=== PATIENT | female | born 1965 | race Caucasian/White ===

== ENCOUNTER 2017-01-06 18:20 | Inpatient (IN) | payer SELFPAY ==
[~2017-01-06] VITALS: Ht 167.6 cm; Wt 99.8 kg
[~2017-01-06 18:20] MED LIST: CALCIUM CARBON600 M4 PO; FERROUS SULFAT325 MG PO
[2017-01-06 18:45] VITALS: BP 129/88
--- NOTE | 2017-01-06 20:20 | NUR ---
51F BIB FAMILY C/O SEIZURE THIS MORNING & 30 MINUTES AGO TODAY. PT HAD A SEIZURE ACTIVITY IN LOBBY, RIGHT NOW ALOC, AMBULATED TO BED, ON LEARNING AND DEVELOPMENT ADMINISTRATOR. SEIZURES PRECAUTIONS INITIATED, ER MD EVALUATING PT AT BEDSIDE. PT IN O2 6 LT NONREBREATHER MASK. O2 98% RA, LORAZEPAM ADMINISTERED VIA IV.
--- NOTE | 2017-01-06 20:20 | NUR ---
Patient being evaluated by physician at bedside.
--- NOTE | 2017-01-06 20:20 | NUR ---
BIB WHEELCHAIR TO ER BED 5
[2017-01-06] MEDS ORDERED: NACL 0.9% 1,000 ML IV ONE (20:26)
[2017-01-06] MEDS ORDERED: LORazepam 2 MG/ML VIAL ONE (20:29)
[2017-01-06] MEDS ORDERED: LORazepam 2 MG/ML VIAL IVP ONE ×2 (20:30→20:35)
--- NOTE | 2017-01-06 21:44 | NUR ---
PT AWAKE, ALERT AND ORIENTED X 4, DENIES ANY PAIN AT THE MOMENT. NO S/S OF DISTRESS NOTED OR ANY MORE SEIZURE ACTIVITY UP TO THIS POINT. PT CONTINUES IN O2, VSS. ER MD NOTIFIED.
--- NOTE | 2017-01-06 22:26 | NUR ---
Patient will be admitted to care of . Admited to TELEMETRY. Will go to [id number]. Belongings list completed. Report to EZRA ARTEAGA.
[2017-01-06] MEDS ORDERED: HYDROcodone/APAP 5/325 MG 1 TAB TAB PO PRN (23:05)
[2017-01-06] MEDS ORDERED: LORazepam 2 MG/ML VIAL IVP PRN (23:05)
[2017-01-06] MEDS ORDERED: ONDANSETRON 4 MG/2 ML VIAL IVP PRN (23:05)
[2017-01-06 23:35] VITALS: BP 101/65
--- NOTE | 2017-01-06 23:35 | NUR ---
ADMITTED A PT FROM ER, TRANSPORTED VIA GURNEY ACCOMPANIED BY ER NURSE. PT IS AAOX4 HAS NO COMPLAIN OF PAIN. ON FASK MASK AT 6LPM, NO S/S OF RESPIRATORY DISTRESS/DISCOMFORT NOTED. V/S CHECKED AND STABLE. SKIN CHECKED DONE BY CHARGE NURSE. IV SITE IS PATENT AND INTACT. ID BAND UPDATED. MRSA SWABBING DONE. ROOM ORIENTATION DONE. PLAN OF CARE DISCUSSED, VERBALIZED UNDERSTANDING. SAFETY MEASURES INITIATED, CALL LIGHT WITHIN REACH. WILL CONTINUE TO MONITOR.
[2017-01-06] MEDS: NACL 0.9% 1,000 ML IV SCH (23:46)
[2017-01-07] VITALS: BP 112/66
[2017-01-07] MEDS: ACETAMINOPHEN 325 MG TAB PO PRN ×2 (00:23→10:53)
--- NOTE | 2017-01-07 02:37 | NUR ---
PT IS SLEEPING. NO S/S OR RESPIRATORY DISTRESS/DISCOMFORT NOTED.
--- NOTE | 2017-01-07 03:08 | NUR ---
SPOKE TO NORY, DAUGHTER VIA PHONE. SHE ASKED ABOUT THE CONDITION OF HER MOM, PT WAS AWAKE. I LET HER TALKED TO HER MOM. PT NOT IN DISTRESS.
[2017-01-07 04:00] VITALS: BP 106/62
--- NOTE | 2017-01-07 04:00 | NUR ---
PT SLEEPING EASILY AWAKE BY HER NAME. V/S CHECKED ANS STABLE. NO COMPLAIN OF PAIN. NO S/S IF RESPIRATORY DISTRESS/DISCOMFORT NOTED.
--- NOTE | 2017-01-07 06:00 | NUR ---
PT IS AWAKE. NOT IN DISTRESS. NO S/S OF RESPIRATORY DISTRESS/DISCOMFORT NOTED. CALL LIGHT WITHIN REACH.
--- NOTE | 2017-01-07 07:11 | NUR ---
ENDORSED REPORT TO DAY SHIFT NURSE FOR CONTINUITY OF CARE. PT IS IN STABLE CONDITION.
--- NOTE | 2017-01-07 07:35 | NUR ---
RECEIVED PT SLEEPING COMFORTABLY IN BED AND WAS IN NO DISTRESS. NO SEIZURE ACTIVITIES NOTED AND NOTED PADDING APPLIED ON SIDERAILS. PT EASILY AWAKENED AND VOICED NO C/O PAIN OR ANY OTHER DISCOMFORT. SHIFT ASSESSMENT DONE AND CHARTED. PLAN OF CARE, MEDS, TREATMENTS AND SAFETY DISCUSSED WITH PT AND PT VERBALIZED UNDERSTANDING. WILL CONTINUE TO MONITOR PT.
[2017-01-07 08:00] VITALS: BP 112/64
--- NOTE | 2017-01-07 08:00 | NUR ---
DR. MCCOY AND DR. UGALDE SAW PT AND MDS LEFT NEW ORDERS.
--- NOTE | 2017-01-07 08:04 | NUR ---
PATIENT HAS BEEN SCREENED AND CATEGORIZED MODERATE NUTRITION RISK. PATIENT WILL BE SEEN WITHIN 3-5 DAYS OF ADMISSION. 01/09/17-01/11/[address]
[2017-01-07] MEDS: CALCIUM CARB 600 MG TAB PO SCH ×2 (09:16→20:48)
[2017-01-07] MEDS: FERROUS SULFATE 325 MG TABEC PO SCH ×3 (09:16→17:49)
[2017-01-07] MEDS: NACL 0.9% 1,000 ML IV SCH ×2 (09:19→18:38)
--- NOTE | 2017-01-07 10:00 | NUR ---
PT'S DAUGHTER AND SISTER WERE IN TO VISIT PT. PT AAOX4 AND AMBULATING IN THE ROOM WITH STEADY GAIT. NO SEIZURES NOTED.
--- NOTE | 2017-01-07 10:53 | NUR ---
PT MEDICATED WITH TYLENOL 650 MG PO PER PRN ORDER FOR C/O HEADACHE 03/08. WILL CONTINUE TO MONITOR PT.
[2017-01-07 12:00] VITALS: BP 100/52
--- NOTE | 2017-01-07 13:00 | NUR ---
PT NOTED TO BE SLEEPING AT THIS TIME AND WAS EASILY ROUSABLE AND TOOK PO MED WELL. NO SEIZURE ACTIVITIES NOTED.
[2017-01-07] MEDS ORDERED: PHENYTOIN 100 MG CAPER PO SCH (14:30)
--- NOTE | 2017-01-07 15:00 | NUR ---
PT C/O IV SITE BEING PAINFUL AND WANTED IT CHANGED. IV G22 INSERTED TO PT'S LT HAND ASEPTICALLY AND PT TOLERATED IT WELL. OLD IV REMOVED WITH CATH TIP INTACT AND PRESSURE DRESSINGS APPLIED TO SITE.
[2017-01-07 16:00] VITALS: BP 124/72
--- NOTE | 2017-01-07 16:00 | NUR ---
PT C/O PAIN IN THE IV SITE AND SAME REMOVED WITH OLD CATH TIP INTACT. PRESSURE DRESSINGS APPLIED TO SITE. NEW G22 INSERTED TO PT'S LEFT HAND ASEPTICALLY AND PT TOLERATED IT WELL.
--- NOTE | 2017-01-07 17:51 | NUR ---
PT MEDICATED WITH NORCO PER PRN ORDER FOR C/O GENERALIZED PAIN 05/08.
--- NOTE | 2017-01-07 18:36 | NUR ---
PT TOOK DIET AND FLUIDS WELL. PT STATED THAT HER PAIN WAS LESS 3/10. PT AMBULATING IN ROOM INDEPENDENTLY. PT'S FAMILY VISITING AT THIS TIME.
--- NOTE | 2017-01-07 18:57 | NUR ---
TELEMETRY DISCONTINUED PER MD'S ORDER. TELE BOX REMOVED AND RETURNED TO CHIEF GAUGER.
--- NOTE | 2017-01-07 19:15 | NUR ---
REPORT GIVEN TO JONATHAN MUNGUIA AT BEDSIDE. NO SEIZURE ACTIVITIES NOTED. PT VOICED NO C/O PAIN AT THIS TIME.
--- NOTE | 2017-01-07 19:20 | NUR ---
REPORT GIVEN TO JONATHAN AT BEDSIDE. PT STILL EATING DINNER AT THIS TIME. NO CHANGES NOTED IN PT'S CONDITION. Addendum: 01/07/17 at 1925 by Agency Andreia MUNGUIA RN WRONG PT.
--- NOTE | 2017-01-07 19:30 | NUR ---
RECEIVED REPORT FROM JORGE L MUNGUIA AT BEDSIDE. PT IS ALERT AWAKE ORIENTED X4. INITIAL ASSESSMENT DONE. NO S/S OF RESPIRATORY DISTRESS OR SOB NOTED. NO C/O PAIN OR ANY DISCOMFORT AT THIS TIME. PLAN OF CARE REVIEWED TO PT AND FAMILY AT BEDSIDE AND VERBALIZED UNDERSTANDING. CALL LIGHT WITHIN REACH. WILL CONTINUE TO MONITOR.
[2017-01-07] MEDS: CYCLOBENZAPRINE 10 MG TAB PO SCH (20:49)
[2017-01-07] MEDS: PHENYTOIN 100 MG CAPER PO SCH (20:49)
[2017-01-08] VITALS: BP 120/61
--- NOTE | 2017-01-08 00:20 | NUR ---
PT IS SLEEPING RIGHT NOW BUT EASILY AROUSABLE. NO S/S OF ANY DISCOMFORT AT THIS TIME. ALL NEEDS ARE ATTENDED. CALL LIGHT WITHIN REACH. WILL CONTINUE TO MONITOR.
[2017-01-08] MEDS: PHENYTOIN 100 MG CAPER PO SCH ×2 (05:20→13:29)
[2017-01-08] MEDS: NACL 0.9% 1,000 ML IV SCH (05:21)
--- NOTE | 2017-01-08 05:30 | NUR ---
AM CARE RENDERED. BED LINEN CHANGED. INSTRUCTED PT TO REPOSITION. KEPT CLEAN AND DRY. CALL LIGHT WITHIN REACH. WILL CONTINUE TO MONITOR.
--- NOTE | 2017-01-08 07:24 | NUR ---
PT HAS NO S/S OF ANY DISCOMFORT. PLAN OF CARE ENDORSE TO AM SHIFT NURSE FOR CONTINUITY OF CARE.
[2017-01-08 08:00] VITALS: BP 119/71
[2017-01-08] MEDS ORDERED: DILANTIN100 M1 PO (08:38)
[2017-01-08] MEDS ORDERED: ATORVASTATIN 20 MG TAB PO SCH (09:00)
[2017-01-08] MEDS: CYCLOBENZAPRINE 10 MG TAB PO SCH ×2 (09:57→13:29)
[2017-01-08] MEDS: FERROUS SULFATE 325 MG TABEC PO SCH ×2 (09:57→13:29)
[2017-01-08] MEDS: CALCIUM CARB 600 MG TAB PO SCH (09:57)
--- NOTE | 2017-01-08 09:58 | NUR ---
SEEN PATIENT AT THE BEDSIDE. PT JUST WENT TO THE TOILET. IV PATENT NO SX OF INFILTRTION. MEDS GIVEN ORDERED. NO PAIN REPORTED
--- NOTE | 2017-01-08 11:31 | NUR ---
SPOKE WITH DR DE LEON. RE: LOW DILANTIN LEVEL. PER MD THERE IS NO NEED FOR DILATIN AT THIS TIME THERE IS NO ACTIVE SEIZURE. MD WAS NOTIFIED ON SLIGHTLY E,EVATED A1C LEVEL. DAIUGHTER RAJESH AT THE BEDSUIDE AND WAS DISCUSSED THE NEED TO SEE PCP AND NEUROLOGST AFTER THE DISCHARGE. PT VERBALIZED UNDERTIANDING.
--- NOTE | 2017-01-08 13:00 | NUR ---
RECEIVED DC ORDER. IVF REMOVED, IV REMOVED INTACT, AT THE BEDSDIE AND DISCUSSED THE DISCHARGE PLAN. EDUCATED TO MAKE ARRANGEMENT TO CALL PCP FOR APPOINTMENT.
[2017-01-08 13:37] VITALS: BP 122/77
--- NOTE | 2017-01-08 14:30 | NUR ---
WHEELED PATEITN OUT SAFELY. VS STABLE. PRESCRIPTION GIVEN TO THE FAMILY.
--- NOTE | 2017-01-08 15:32 | NUR ---
RECEIVED PATEINT FROM NOC SHIFT.PT IS AROUSABLE NO DISTRESS REPORTED, WILL CONT TO MONITOR PT CONDITION
== END 2017-01-08 14:30 | disposition home or self-care (01) | DRG 100 ==
LOC: MED 18:20 → MTU 22:25
PROVIDERS: ADMIT Family Medicine; ATTEND Family Medicine
DX: G40.909 Epilepsy, unspecified, not intractable, without status epilepticus (principal); N17.0 Acute kidney failure with tubular necrosis; E44.1 Mild protein-calorie malnutrition; E78.5 Hyperlipidemia, unspecified; R80.9 Proteinuria, unspecified; E66.9 Obesity, unspecified; I07.1 Rheumatic tricuspid insufficiency; Z90.710 Acquired absence of both cervix and uterus; Z83.3 Family history of diabetes mellitus; Z68.35 Body mass index [BMI] 35.0-35.9, adult

== ENCOUNTER 2019-11-26 07:45 | Emergency (ER) | payer MEDICAID ==
[~2019-11-26] VITALS: Ht 165.1 cm; Wt 98.4 kg
[~2019-11-26 07:45] MED LIST changes: +CALC600T56 PO; -CALCIUM CARBON600 M4 PO; +FERR325E14 PO; -FERROUS SULFAT325 MG PO; +PHEN100C4 PO
[2019-11-26 07:53] VITALS: BP 125/79
--- NOTE | 2019-11-26 07:58 | NUR ---
PT TO ER BED 6
--- NOTE | 2019-11-26 08:05 | NUR ---
54 Y/O FEMALE C/O BODY ACHES, COUGH, CONGESTION, AND CHEST PAIN PROVOKED BY COUGH X 3 DAYS. DRY COUGH, LUNG SOUNDS CLEAR THROUGHOUT. RR EVEN AND UNLABORED. 8/10 ACHING PAIN TO HEAD AND CHEST. DENIES FEVER/CHILLS. +NAUSEA, DENIES VOMITING/DIARRHEA. SITTING UPRIGHT IN BED, X1 SIDE RAIL RAISED, BED LOCKED AND IN LOW POSITION. VSS. MEDHX: SEIZURES ALLERGIES: NKA
--- NOTE | 2019-11-26 08:11 | NUR ---
DR DANG AT BEDSIDE EXAMINING PT.
[2019-11-26 08:34] VITALS: BP 122/81
--- NOTE | 2019-11-26 08:34 | NUR ---
Patient discharged with v/s stable. Written and verbal after care instructions given and explained. Patient alert, oriented and verbalized understanding of instructions. Ambulatory with steady gait. All questions addressed prior to discharge. ID band removed. Patient advised to follow up with PMD. Rx of promethazine and motrin given. Patient educated on indication of medication including possible reaction and side effects. Opportunity to ask questions provided and answered.
== END 2019-11-26 08:34 | disposition home or self-care (01) ==
LOC: MED 07:45
DX: J06.9 Acute upper respiratory infection, unspecified (principal); R03.0 Elevated blood-pressure reading, without diagnosis of hypertension; J45.909 Unspecified asthma, uncomplicated; Z79.899 Other long term (current) drug therapy
CPT/HCPCS: 99283

== ENCOUNTER 2020-04-21 07:44 | Day surgery (SDC) | payer OTHER, SELFPAY ==
[~2020-04-21] VITALS: Ht 165.1 cm; Wt 99.3 kg
[2020-04-21] MEDS ORDERED: fentaNYL citrate 0.05 MG/ML VIAL ONE (09:45)
[2020-04-21] MEDS ORDERED: LIDOCAINE 2% 100 MG/5 ML UJET TP ONE (09:46)
[2020-04-21] MEDS ORDERED: fentaNYL citrate 0.05 MG/ML VIAL IVP ONE (13:15)
== END 2020-04-21 10:55 | disposition home or self-care (01) ==
LOC: MDS 07:44 → MFCC 07:44 → MDS 10:55
PROVIDERS: ATTEND Internal Medicine Gastroenterology
DX: Z12.11 Encounter for screening for malignant neoplasm of colon (principal); D12.5 Benign neoplasm of sigmoid colon; E66.9 Obesity, unspecified; Z68.36 Body mass index [BMI] 36.0-36.9, adult; Z79.899 Other long term (current) drug therapy; Z90.710 Acquired absence of both cervix and uterus; Z11.59 Encounter for screening for other viral diseases
CPT/HCPCS: 45385; J3010; U0003

== ENCOUNTER 2021-04-20 09:01 | Day surgery (SDC) | payer OTHER ==
[~2021-04-20] VITALS: Ht 165.1 cm; Wt 102.5 kg
[2021-04-20] MEDS ORDERED: MIDAZOLAM 2 MG/2 ML VIAL ONE (13:36)
[2021-04-20] MEDS ORDERED: fentaNYL citrate 0.05 MG/ML VIAL ONE (13:36)
[2021-04-20] MEDS ORDERED: MIDAZOLAM 2 MG/2 ML VIAL IVP ONE (14:10)
== END 2021-04-20 14:45 | disposition home or self-care (01) ==
LOC: MDS 09:01 → MMU 10:17 → MDS 14:45
PROVIDERS: ATTEND Internal Medicine Gastroenterology
DX: R10.13 Epigastric pain (principal); K21.00 Gastro-esophageal reflux disease with esophagitis, without bleeding; Z79.899 Other long term (current) drug therapy
CPT/HCPCS: 36415; 43239; 86677; J2250; J3010